=== PATIENT | female | born 1980 | race Caucasian/White ===

== ENCOUNTER 2017-01-07 15:37 | Inpatient (IN) | payer BC ==
[2017-01-07] MEDS ORDERED: Oxytocin in LR* 20 UNITS/1,000 ML BAG IVPB ONE (17:18)
[2017-01-07 17:44] LABS: Hematocrit 33 % (35-47); Hemoglobin 10.3 g/dl (12.0-16.0); Mean Corpuscular HGB Conc 32 g/dl (31-36); Mean Corpuscular Hemoglobin 26 pg (27-31); Mean Corpuscular Volume 81 fL (80-97); Mean Platelet Volume 9 um3 (7.4-10.4); Red Blood Count 4.03 10^6/ul (4.0-5.4); Red Cell Distribution Width 15 % (10.5-15); White Blood Count 9.6 10^3/ul (3.5-10.8)
[2017-01-07] MEDS ORDERED: Oxytocin in LR* 20 UNITS/1,000 ML BAG IVPB SCH (18:00)
[2017-01-07 19:15] LABS: Albumin 2.8 g/dL (3.2-5.2); BUN/Creatinine Ratio 28.6 (8-20); Calcium 9.4 mg/dL (8.6-10.3); EGFR African American 122.5 (>60); EGFR Non-African American 95.2 (>60); Globulin 2.9 g/dL (2-4); Potassium 4.7 mmol/L (3.5-5.0); Total Bilirubin 0.3 mg/dL (0.2-1.0); Total Protein 5.7 g/dL (6.4-8.9); Uric Acid 5.8 mg/dL (2.3-6.6)
[2017-01-08] MEDS ORDERED: Promethazine INJ(RESTRICTED)* 25 MG/ML 1 ML VIAL ONE (00:05)
[2017-01-08] MEDS ORDERED: Nalbuphine* 20 MG/ML 1 ML VIAL ONE (00:05)
[2017-01-08] MEDS ORDERED: Nalbuphine* 20 MG/ML 1 ML VIAL IV PRN ×2 (00:06→05:52)
[2017-01-08] MEDS ORDERED: Promethazine INJ(RESTRICTED)* 25 MG/ML 1 ML VIAL IV ONE (00:07)
[2017-01-08] MEDS ORDERED: Sodium Citrate/Citric Acid* 15 ML UDC ONE (03:38)
[2017-01-08] MEDS ORDERED: Morphine PF AMP (0.5MG/ML)* 5 MG/10 ML AMP ONE (04:31)
[2017-01-08] MEDS ORDERED: ceFOXitin 2 GM IVPREMIX* 2 GM/50 ML BAG ONE (04:39)
[2017-01-08] MEDS ORDERED: OXYTOCIN* 10 UNITS/ML 1 ML VIAL ONE ×2 (05:07→05:36)
[2017-01-08] MEDS ORDERED: Ondansetron INJ* 2 MG/ML VIAL ONE (05:10)
[2017-01-08] MEDS ORDERED: Misoprostol TAB* 200 MCG ONE (05:37)
[2017-01-08] MEDS ORDERED: Ketorolac INJ* 30 MG/ML 1 ML VIAL IV PRN ×2 (05:49→05:52)
[2017-01-08] MEDS ORDERED: Acetaminophen IV 1GM/100ML * 100 ML IVPB ONE (05:49)
[2017-01-08] MEDS ORDERED: oxyCODONE TAB* 5 MG TAB PO PRN ×2 (05:49→05:52)
[2017-01-08] MEDS ORDERED: fentaNYL* 50 MCG/ML 2 ML VIAL (100 MCG VIAL) IV PRN (05:49)
[2017-01-08] MEDS ORDERED: PROCHLORPERAZINE INJ 5 MG/ML 2 ML VIAL IV PRN (05:49)
[2017-01-08] MEDS ORDERED: Ondansetron INJ* 2 MG/ML VIAL IV PRN (05:52)
[2017-01-08] MEDS ORDERED: Naloxone* 0.4 MG/ML 1 ML VIAL IV PRN (05:52)
[2017-01-08] MEDS ORDERED: EPHEDrine (Pressors)* 50 MG/ML VIAL ONE (06:00)
[2017-01-08] MEDS ORDERED: Phenylephrine IV* 40 MCG/ML 10 ML SYRINGE ONE (06:00)
[2017-01-08] MEDS ORDERED: Ketorolac INJ* 30 MG/ML 1 ML VIAL ONE (06:36)
[2017-01-08] MEDS ORDERED: Glycerin ADULT SUPP PR PRN (07:16)
[2017-01-08] MEDS ORDERED: Misoprostol TAB* 200 MCG PR ONE (07:16)
[2017-01-08] MEDS ORDERED: Dibucaine 1% 28.35 GM TUBE PR PRN (07:16)
[2017-01-08] MEDS ORDERED: Witch Hazel PAD* JAR TOPICAL PRN (07:16)
[2017-01-08] MEDS ORDERED: Oxytocin in LR* 20 UNITS/1,000 ML BAG IVPB SCH (08:00)
--- NOTE | 2017-01-08 10:48 | OP ---
DATE OF OPERATION: 01/08/17 - ROOM #117 DATE OF : 82 SURGEON: Florina Oviedo MD PAN SHAKER: Chucho Batista MD ANESTHESIOLOGIST: Zhanna Santillan MD ANESTHESIA: Spinal. PRE-OP DIAGNOSIS: Full-term intrauterine twin gestation, twin B, category II heart tracing, and remote from delivery. POST-OP DIAGNOSIS: Full-term intrauterine twin gestation, twin B, category II heart tracing, and remote from delivery. OPERATIVE PROCEDURE: Primary low-flap transverse section via Pfannenstiel. Uterus closed in 2 layers. FINDINGS: Viable twin girls. Twin A: Vertex, weight 6 pound 11 ounces. Apgars 9 and 9. Twin B: Vertex, weight 7 pound 7 ounces, Apgars 9 and 9. Clear amniotic fluid. The uterus was atonic. There was a 3-cm serosal fibroid on the posterior uterine wall near the fundus. Normal-appearing ovaries bilaterally. Normal- appearing fallopian tubes bilaterally. ESTIMATED BLOOD LOSS: 800 cc intraop and 300 cc of blood and clot expressed immediately postop. URINE OUTPUT: 300 cc of clear urine. COMPLICATIONS: None. COUNTS: Sponge, lap, and needle count were correct x2. CONDITION: The patient was brought to the recovery room awake and in stable condition. DESCRIPTION OF PROCEDURE: The patient was brought to the operating room when she was found to be fully dilated. The patient pushed for approximately 45 minutes while both babies were monitored. Twin B developed tachycardia. The patient was afebrile. No other known cause of the tachycardia was found and recommendation was made for primary section, inability to assess well-being for twin B, remote from delivery. The patient received spinal anesthesia. A Irby catheter was placed under sterile condition. The patient was prepped and draped in the usual sterile fashion in the dorsal supine position with the leftward tilt. Time-out was performed. The spinal was tested with the Allis clamps. A Pfannenstiel skin incision was made approximately 2 cm above the symphysis pubis. This was carried down to the underlying layer of fascia. The fascia was incised in the midline and the fascial incision was extended laterally with the Corral scissors. The fascia was grasped with the Peter clamps. The rectus muscle was dissected using sharp and blunt dissection. The rectus muscle was in the midline. The peritoneum was identified, tented up, and entered bluntly. The peritoneal incision was extended bluntly. The bladder blade was inserted. The vesicouterine peritoneum was identified and a bladder flap was created. The bladder blade was re- inserted. A low-flap transverse incision was made on the uterus to the level of the membranes. The uterine incision was extended bluntly. Twin A was delivered atraumatically from the vertex presentation. The cord was milked. The cord was clamped and cut and the was handed off to the awaiting construction skills teacher, Dr. Baker. Twin B was palpated to be in the vertex presentation. Membranes were ruptured. Clear amniotic fluid was encountered and the infant was delivered atraumatically from the vertex presentation. The cord was milked. The cord was clamped and cut and the infant was handed off to the awaiting construction skills teacher, Dr. Baker. The placenta was delivered. The uterus was exteriorized. The uterus was cleared of all clots and debris and the uterus was found to be very atonic. Uterine incision was repaired using 0 Vicryl in a running locked fashion. A second layer of the same suture was used to imbricate and obtain excellent hemostasis. The patient received a dose of 800 mcg of Cytotec rectally. The uterine tone improved. The ovaries and fallopian tubes were examined with the above findings noted. The abdomen and pelvis were copiously irrigated with warm normal saline. Once again the uterine incision was examined and found to be hemostatic. The uterus was returned to the pelvis. The gutters were cleared of all clots and debris and again the uterine incision was examined and found to be hemostatic. Peritoneum was closed with 3-0 Vicryls. The subfascial layer was examined and found to be hemostatic. The fascia was closed using 0 Vicryl. The subcutaneous tissue was irrigated. Any small bleeders were cauterized with the Bovie. Three interrupted subcutaneous sutures were placed of 3-0 Vicryl. The skin was closed with 4-0 Monocryl. Steri-Strips were applied. A pressure dressing was applied. The patient tolerated the procedure well. Sponge, lap, and needle count were correct x2. Irby catheter was draining clear urine. The fundus was found to be approximately 4 cm above the umbilicus. With uterine massage, blood and clot was evacuated, approximately 300 cc. The fundus was then firm. The patient was brought to the recovery room awake and in stable condition. The patient has sequential compression devices activated throughout the surgery and in the recovery room, those will remain until she is ambulating regularly. In addition, she will receive 5,000 units of subcu heparin q.8 hours for DVT prophylaxis. Risks and benefits were discussed with the patient and the patient agrees with the plan. [id number]/[facility] #: [id number] [facility] CENTERMarianela
[2017-01-08] MEDS: Simethicone CHEW TAB* 80 MG PO SCH ×4 (11:40→22:09)
[2017-01-08] MEDS: Docusate CAP* 100 MG PO SCH ×3 (11:41→20:25)
[2017-01-08] MEDS: Acetaminophen TAB* 325 MG PO SCH ×2 (14:31→22:09)
[2017-01-08] MEDS: Heparin VIAL(*) 5000 UNITS/ML VIAL (FIVE THOUSAND) SUBCUT SCH ×2 (14:31→22:08)
[2017-01-09] MEDS: Heparin VIAL(*) 5000 UNITS/ML VIAL (FIVE THOUSAND) SUBCUT SCH ×3 (06:20→22:08)
[2017-01-09] MEDS: Acetaminophen TAB* 325 MG PO SCH (06:22)
[2017-01-09 08:24] LABS: Hematocrit 22 % (35-47); Hemoglobin 6.8 g/dl (12.0-16.0); Mean Corpuscular HGB Conc 32 g/dl (31-36); Mean Corpuscular Hemoglobin 26 pg (27-31); Mean Corpuscular Volume 81 fL (80-97); Mean Platelet Volume 9 um3 (7.4-10.4); Red Blood Count 2.66 10^6/ul (4.0-5.4); Red Cell Distribution Width 15 % (10.5-15); White Blood Count 12.3 10^3/ul (3.5-10.8)
[2017-01-09 08:25] LABS: Comments Flag Yes
[2017-01-09 08:26] LABS: Add Diff/Slide Review? Slide Review Added
[2017-01-09] MEDS ORDERED: Tetan/Diph/Pertus SYR(Tdap)* 0.5 ML SYR(BOOSTRIX) use SYR IM ONE (09:00)
[2017-01-09] MEDS: Docusate CAP* 100 MG PO SCH ×3 (09:00→21:18)
[2017-01-09] MEDS ORDERED: oxyCODONE/Acetamin 5/325 MG* TAB PO PRN (09:08)
[2017-01-09] MEDS: Ferrous Gluconate TAB* 324 MG TAB PO SCH ×2 (09:10→21:18)
[2017-01-09] MEDS: Simethicone CHEW TAB* 80 MG PO SCH ×4 (09:10→21:18)
[2017-01-09] MEDS: Ibuprofen TAB* 600 MG PO SCH ×3 (10:36→23:41)
--- NOTE | 2017-01-09 16:11 | PTEDU ---
Patient Name: CAMELIA CUMMINS CAMELIA CUMMINS selected video: Never Ever Shake a Baby to view on 01/09/2017 at 4:10:40 PM from [facility] [id number]
[2017-01-10] MEDS: Heparin VIAL(*) 5000 UNITS/ML VIAL (FIVE THOUSAND) SUBCUT SCH ×3 (06:34→22:27)
[2017-01-10] MEDS: Ibuprofen TAB* 600 MG PO SCH ×3 (06:35→18:31)
[2017-01-10] MEDS: Simethicone CHEW TAB* 80 MG PO SCH ×4 (07:50→22:27)
[2017-01-10] MEDS: Ferrous Gluconate TAB* 324 MG TAB PO SCH ×2 (07:50→22:27)
[2017-01-10] MEDS: oxyCODONE/Acetamin 5/325 MG* TAB PO PRN ×2 (07:51→12:38)
[2017-01-10] MEDS: Docusate CAP* 100 MG PO SCH ×3 (09:41→22:10)
[2017-01-11] MEDS: Ibuprofen TAB* 600 MG PO SCH ×2 (00:15→07:40)
[2017-01-11] MEDS: oxyCODONE/Acetamin 5/325 MG* TAB PO PRN (00:41)
[2017-01-11] MEDS: Ferrous Gluconate TAB* 324 MG TAB PO SCH (07:38)
[2017-01-11] MEDS: Simethicone CHEW TAB* 80 MG PO SCH (07:39)
[2017-01-11] MEDS: Heparin VIAL(*) 5000 UNITS/ML VIAL (FIVE THOUSAND) SUBCUT SCH (07:40)
[2017-01-11 07:47] VITALS: BP 147/69
[2017-01-11 07:56] LABS: Hematocrit 20 % (35-47); Mean Corpuscular HGB Conc 32 g/dl (31-36); Mean Corpuscular Hemoglobin 26 pg (27-31); Mean Corpuscular Volume 81 fL (80-97); Mean Platelet Volume 8 um3 (7.4-10.4); Red Cell Distribution Width 15 % (10.5-15); White Blood Count 9.2 10^3/ul (3.5-10.8)
[2017-01-11 07:58] LABS: Comments Flag Yes; Hemoglobin 6.5 g/dl (12.0-16.0)
[2017-01-11] MEDS: Docusate CAP* 100 MG PO SCH (09:40)
== END 2017-01-11 13:15 | disposition home or self-care (01) | DRG 540 ==
LOC: MCHOBOUT 15:37 → MCHOB 16:42
PROVIDERS: ADMIT Obstetrics & Gynecology; ATTEND Obstetrics & Gynecology
PROC: 3E033VJ Introduction of Other Hormone into Peripheral Vein, Percutaneous Approach (ICD-10-PCS; 2017-01-08)
PROC: 10907ZC Drainage of Amniotic Fluid, Therapeutic from Products of Conception, Via Natural or Artificial Opening (ICD-10-PCS; 2017-01-08)
PROC: 4A1H7CZ Monitoring of Products of Conception, Cardiac Rate, Via Natural or Artificial Opening (ICD-10-PCS; 2017-01-08)
PROC: 10D00Z1 Extraction of Products of Conception, Low, Open Approach (ICD-10-PCS; principal; 2017-01-08 03:18)
DX: O76 Abnormality in fetal heart rate and rhythm complicating labor and delivery (principal); Z68.42 Body mass index [BMI] 45.0-49.9, adult; O24.420 Gestational diabetes mellitus in childbirth, diet controlled; O99.214 Obesity complicating childbirth; Z37.2 Twins, both liveborn; O14.04 Mild to moderate pre-eclampsia, complicating childbirth; O99.284 Endocrine, nutritional and metabolic diseases complicating childbirth; E03.9 Hypothyroidism, unspecified; E66.01 Morbid (severe) obesity due to excess calories; O75.89 Other specified complications of labor and delivery; O34.13 Maternal care for benign tumor of corpus uteri, third trimester; D25.2 Subserosal leiomyoma of uterus; Z3A.38 38 weeks gestation of pregnancy
CPT/HCPCS: 36415; 76815; 80053; 84550; 85025; 85610; 85730; 86850; 86900; 86901; A9270-GY; J0694; J1644; J1885; J2300; J2405; J2550; J2590

== ENCOUNTER 2018-07-20 17:24 | Emergency (ER) | payer BC ==
--- NOTE | 2018-07-20 17:36 | UC ---
Abdominal Pain Female HPI - HPI Summary HPI Summary: Has very mild RLQ pain x2wks but woke up this AM w/ moderate/worsened pain. assoc. w/ loose stools. - History of Current Complaint Stated Complaint: ABDOMINAL COMPLAINT Time Seen by Provider: 07/20/18 17:35 Hx Obtained From: Patient ?: No Onset/Duration: Sudden Onset Location: Discrete At: RLQ Radiates: No Aggravating Factor(s): Nothing Alleviating Factor(s): Nothing Associated Signs and Symptoms: Positive: Nausea. Negative: Fever, Cough, Blood in Stool, Urinary Symptoms Allergies/Adverse Reactions: Allergies Allergy/AdvReac Type Severity Reaction Status Date / Time latex Allergy Rash Verified 07/20/18 17:35 Sulfa (Sulfonamide Allergy Hives Verified 07/20/18 17:35 Antibiotics) Home Medications: Home Medications Aspirin 650 mg PO Q12HR PRN 07/20/18 [History Confirmed 07/20/18] PMH/Surg Hx/FS Hx/Imm Hx Endocrine History: Other - obesity - Surgical History Surgical History: None - Social History Alcohol Use: None Substance Use Type: None Smoking Status (MU): Former Smoker Have You Smoked in the Last Year: No - Immunization History Most Recent Influenza Vaccination: unknown Most Recent Pneumonia Vaccination: none Review of Systems All Other Systems Reviewed And Are Negative: Yes Constitutional: Positive: Negative. Negative: Fever, Chills, Fatigue Skin: Positive: Negative Respiratory: Positive: Negative Cardiovascular: Positive: Negative Gastrointestinal: Positive: Abdominal Pain, Nausea. Negative: Vomiting, Diarrhea Genitourinary: Negative: Dysuria, Hematuria Neurological: Negative: Headache Physical Exam Triage Information Reviewed: Yes Appearance: Well-Appearing Vital Signs Reviewed: Yes Respiratory Exam: Normal Cardiovascular Exam: Normal Abdomen Description: Positive: Soft, Other: - RLQ deep tenderness. Negative: CVA Tenderness (R), CVA Tenderness (L), Distended, Guarding, Peritoneal Signs Abd Pain Female Course/Dx - Course Course Of Treatment: RLQ pain that worsened today in a non obese pt. Urine hcg neg today. Exam + for RLQ tenderness. With RLQ pain appendicitis, diveriticulitis and ovarian cause would need to be ruled out. Given that we would potentially need a CT w/ contrast, lab results today, and Possibe US none of which we have here today it was recommended she get dao evaluation at ED. Pt is stable and good vitals. Offered ambulance she declined. - Differential Dx/Diagnosis Differential Diagnosis: Appendicitis, Diverticulitis, Ovarian Cyst Provider Diagnosis: Right lower quadrant abdominal pain Discharge - Sign-Out/Discharge Documenting (check all that apply): Patient Departure All imaging exams completed and their final reports reviewed: No Studies - Discharge Plan Condition: Good Disposition: HOME-RECOMMEND TO ED Patient Education Materials: Acute Abdominal Pain (ED) Referrals: Sonu Hoskins MD [Primary Care Provider] - Additional Instructions: It is my recommendation that you go to the ER to rule out diverticulitis vs. appendicitis or other Right Lower Quadrant evaluation. You will likely need a CT with or without contrast. Your vitals are stable. - Billing Disposition and Condition Condition: GOOD Disposition: Home-Recommend to ED
[2018-07-20 17:39] VITALS: BP 144/93
== END 2018-07-20 18:20 | disposition home health service (06) ==
LOC: UCEAST 17:24
DX: R10.31 Right lower quadrant pain (principal); Z88.2 Allergy status to sulfonamides; Z87.891 Personal history of nicotine dependence
CPT/HCPCS: 84702; 99212; G0463

== ENCOUNTER 2018-07-20 18:37 | Emergency (ER) | payer BC ==
[2018-07-20 18:43] VITALS: BP 158/93
== END 2018-07-20 20:55 | disposition left against medical advice (07) ==
LOC: ED 18:37
DX: R10.9 Unspecified abdominal pain (principal); Z53.21 Procedure and treatment not carried out due to patient leaving prior to being seen by health care provider
CPT/HCPCS: 99282

== ENCOUNTER 2018-07-21 09:58 | Day surgery (SDC) | payer BC ==
[2018-07-21] MEDS ORDERED: NS 0.9% 1000 ML* 1,000 ML IV ONE (10:24)
[2018-07-21 10:41] LABS: ABS Basophils 0 10^3/ul (0-0.2); ABS Eosinophils 0.1 10^3/ul (0-0.6); ABS Lymphocytes 2.2 10^3/ul (1.0-4.8); ABS Monocytes 0.8 10^3/ul (0-0.8); ABS Neutrophils 7.1 10^3/ul (1.5-7.7); ABS Nucleated RBC 0 10^3/ul; Eosinophil % 0.6 %; Hematocrit 41 % (35-47); Hemoglobin 13.9 g/dl (12.0-16.0); Lymphocyte % 21.6 %; Mean Corpuscular HGB Conc 34 g/dl (31-36); Mean Corpuscular Hemoglobin 30 pg (27-31); Mean Corpuscular Volume 86 fL (80-97); Nucleated Red Blood Cells % 0.1; Platelet Count 265 10^3/ul (150-450); Red Blood Count 4.71 10^6/ul (4.00-5.40); Red Cell Distribution Width 13 % (10.5-15); White Blood Count 10.2 10^3/ul (3.5-10.8)
--- NOTE | 2018-07-21 10:47 | ED ---
Abdominal Pain/Female - HPI Summary HPI Summary: This patient is a 38 year old F presenting to [facility] with a chief complaint of RLQ pain for the last two weeks. She visited urgent care last night and they recommended she come here. She felt an increase in pain around 4 hours ago. She states she mostly feels the pain upon movement. She rates the pain 5/10 in severity when she moves, but 0/10 when she is not moving. She denies radiation of the pain to her back, nausea, and vomiting. She states she was nauseous yesterday and earlier this morning but it has since resolved. She states she had chills and diarrhea yesterday as well and that this was her last BM. She reports that her urine is darker than usual but that she needs to drink more water. The patients last menstrual period was 11 days ago and she states it was 4 days shorter than usual. She denies any vaginal discharge. The patient had a test done at urgent care yesterday and it was negative. She reports a Hx of gallbladder problems and denies Hx of ovarian cyst or torsion. - History of Current Complaint Chief Complaint: EDAbdPain Stated Complaint: ABD PAIN Time Seen by Provider: 07/21/18 10:17 Hx Obtained From: Patient Hx Last Menstrual Period: 07/10/2018 Onset/Duration: Lasting Weeks Timing: Constant Severity Initially: Moderate Severity Currently: Moderate Pain Intensity: 5 Pain Scale Used: 0-10 Numeric Location: Discrete At: RLQ Radiates: No Character: Dull Aggravating Factor(s): Movement Associated Signs and Symptoms: Positive: Nausea, Diarrhea. Negative: Back Pain , Vomiting Allergies/Adverse Reactions: Allergies Allergy/AdvReac Type Severity Reaction Status Date / Time latex Allergy Rash Verified 07/20/18 18:43 Sulfa (Sulfonamide Allergy Hives Verified 07/20/18 18:43 Antibiotics) PMH/Surg Hx/FS Hx/Imm Hx Endocrine/Hematology History: Denies: Hx Diabetes Cardiovascular History: Denies: Hx Hypertension, Hx Pacemaker/ICD Respiratory History: Denies: Hx Asthma GI History: Reports: Hx Gall Bladder Disease History: Reports: Hx Kidney Stones Denies: Hx Kidney Infection, Other Problems/Disorders Sensory History: Denies: Hx Hearing Aid Psychiatric History: Denies: Hx Anxiety, Hx Depression, Hx Panic Disorder, Other Psychiatric Issues/Disorders - Surgical History Surgery Procedure, Year, and Place: csection x1 Infectious Disease History: No Infectious Disease History: Denies: Traveled Outside the [place] in Last 30 Days - Family History Known Family History: Positive: Hypertension - Father, Diabetes - Grandfather - Social History Alcohol Use: None Substance Use Type: Reports: None Smoking Status (MU): Former Smoker Have You Smoked in the Last Year: No Review of Systems Positive: Chills - Had earlier this morning, have since resolved. . Negative: Fever Negative: Erythema Negative: Sore Throat Negative: Chest Pain Negative: Shortness Of Breath, Cough Positive: Abdominal Pain - RLQ, Diarrhea - Last BM was yesterday. , Nausea - Had earlier this morning, has since resolved. . Negative: Vomiting Negative: dysuria, hematuria Negative: Myalgia, Edema Negative: Rash Neurological: Other - Neg: Dizziness All Other Systems Reviewed And Are Negative: No Physical Exam - Summary Physical Exam Summary: Constitutional: Well-developed, Well-nourished, Alert. (-) Distressed Skin: Warm, Dry HENT: Normocephalic; Atraumatic Eyes: Conjunctiva normal Neck: Musculoskeletal ROM normal neck. (-) JVD, (-) Stridor, (-) Tracheal deviation Cardio: Rhythm regular, rate normal, Heart sounds normal; Intact distal pulses; The pedal pulses are 2+ and symmetric. Radial pulses are 2+ and symmetric. (-) Murmur Pulmonary/Chest wall: Effort normal. (-) Respiratory distress, (-) Wheezes, (-) Rales Abd: Soft, , (-) Distension, (-) Guarding, (-) Rebound, RLQ tenderness. Musculoskeletal: (-) Edema Lymph: (-) Cervical adenopathy Neuro: Alert, Oriented x3 Psych: Mood and affect Normal Triage Information Reviewed: Yes Vital Signs On Initial Exam: Initial Vitals Temp Pulse Resp BP Pulse Ox 98.2 F 118 20 119/65 98 07/21/18 10:00 07/21/18 10:00 07/21/18 10:00 07/21/18 10:00 07/21/18 10:00 Vital Signs Reviewed: Yes Diagnostics - Vital Signs Vital Signs Temp Pulse Resp BP Pulse Ox 07/21/18 10:00 98.2 F 118 20 119/65 98 - Laboratory Lab Results: Lab Results 07/21/18 Range/Units 10:30 WBC 10.2 (3.5-10.8) 10^3/ul RBC 4.71 (4.00-5.40) 10^6/ul Hgb 13.9 (12.0-16.0) g/dl Hct 41 (35-47) % MCV 86 (80-97) fL MCH 30 (27-31) pg MCHC 34 (31-36) g/dl RDW 13 (10.5-15) % Plt Count 265 (150-450) 10^3/ul MPV 8.0 (7.4-10.4) fL Neut % (Auto) 69.6 % Lymph % (Auto) 21.6 % [place] % (Auto) 7.8 % Eos % (Auto) 0.6 % Baso % (Auto) 0.4 % Absolute Neuts (auto) 7.1 (1.5-7.7) 10^3/ul Absolute Lymphs (auto) 2.2 (1.0-4.8) 10^3/ul Absolute Monos (auto) 0.8 (0-0.8) 10^3/ul Absolute Eos (auto) 0.1 (0-0.6) 10^3/ul Absolute Basos (auto) 0 (0-0.2) 10^3/ul Absolute Nucleated RBC 0 10^3/ul Nucleated RBC % 0.1 Result Diagrams: 07/21/18 10:30 07/21/18 10:30 Lab Statement: Any lab studies that have been ordered have been reviewed, and results considered in the medical decision making process. - CT CT ABD/PEL CT Interpretation Completed By: Radiologist Summary of CT Findings: Findings consistent with acute appendicitis. No evidence of peridverticular abcess is noted. ED Provider has reviewed this report. - Ultrasound No standard instances Ultrasound Interpretation Completed By: Radiologist Summary of Ultrasound Findings: Transvaginal U/S: Negative exam, no evidence for ovarian torsion. ED Provider has reviewed this report. Re-Evaluation - Re-Evaluation First Eval Re-Evaluation Time: 13:47 Change: Unchanged Comment: Plan for admit discussed with patient Abdominal Pain Fem Course/Dx - Course Course Of Treatment: This patient is a 38 year old F presenting to [facility] with a chief complaint of RLQ pain for the last two weeks. RLQ tenderness was noted upon physical exam. Transvaginal U/S was performed and was unremarkable for ovarian torsion. CT ABD/PEL was performed and was remarkable for acute appendicitis. The patient will be admitted to [facility] for [place]. This plan was discussed with the patient and she was agreeable with this plan. - Diagnoses Provider Diagnoses: Acute appendicitis - Provider Notifications Discussed Care Of Patient With: Javad Wagner - Surgery Time Discussed With Above Provider: 13:47 Instructed by Provider To: Admit As Inpatient Discharge - Sign-Out/Discharge Documenting (check all that apply): Patient Departure - Admit - Discharge Plan Condition: Stable Disposition: HOME Prescriptions: oxyCODONE/Acetamin 5/325 MG* [Percocet 5/325 TAB*] 1 tab PO Q4H PRN #7 tab MDD 4 PRN Reason: Pain Referrals: Javad Wagner MD [Medical Doctor] - 07/28/18 Sonu Hoskins MD [Primary Care Provider] - Additional Instructions: SEE PREPRINTED INSTRUCTIONS - Billing Disposition and Condition Condition: STABLE Disposition: Home - Attestation Statements Document Initiated by Scribe: Yes Documenting Scribe: Sonu Pineda Provider For Whom Scribe is Documenting (Include Credential): Sixto Lopez MD Scribe Attestation: ISonu, scribed for Sixto Lopez MD on 07/21/18 at 2049. Scribe Documentation Reviewed: Yes Provider Attestation: The documentation as recorded by the Sonu mercado accurately reflects the service I personally performed and the decisions made by me, Sixto Lopez MD Status of Scribe Document: Viewed
[2018-07-21 10:57] LABS: Urine Appearance Cloudy; Urine Bacteria Absent (Absent); Urine Bilirubin Negative (Negative); Urine Blood Negative (Negative); Urine Color Amber; Urine Glucose Negative (Negative); Urine Ketones 1+ (Negative); Urine Nitrite Negative (Negative); Urine Protein 1+(30 mg/dL) (Negative); Urine Red Blood Cell 2+(6-10/hpf) (Absent); Urine Specific Gravity 1.029 (1.010-1.030); Urine Urobilinogen Negative (Negative); Urine White Blood Cell Absent (Absent)
[2018-07-21 11:05] LABS: HCG Pregnancy < 0.60 mIU/mL
[2018-07-21 11:18] LABS: ALT 29 U/L (7-52); AST 19 U/L (13-39); Albumin/Globulin Ratio 1.4 (1-3); Alkaline Phosphatase 59 U/L (34-104); Anion Gap 9 mmol/L (2-11); BUN/Creatinine Ratio 16.1 (8-20); Blood Urea Nitrogen 10 mg/dL (6-24); C Reactive Protein 79.73 mg/L (<8.01); CO2 Carbon Dioxide 25 mmol/L (22-32); Calcium 9.2 mg/dL (8.6-10.3); Chloride 104 mmol/L (101-111); EGFR Non-African American 108.3 (>60); Globulin 2.9 g/dL (2-4); Glucose 151 mg/dL (70-100); Potassium 3.8 mmol/L (3.5-5.0); Sodium 138 mmol/L (135-145); Total Protein 6.9 g/dL (6.4-8.9)
[2018-07-21] MEDS ORDERED: Iohexol 300* (CONTRAST) 10 ML SDV IV ONE (11:48)
[2018-07-21] MEDS ORDERED: ceFOXitin 2 GM IVPREMIX* 2 GM/50 ML BAG IVPB ONE (12:57)
[2018-07-21] MEDS ORDERED: Morphine VIAL* 4 MG/ML VIAL (1 ml vial) IV ONE (13:56)
[2018-07-21] MEDS ORDERED: Ondansetron INJ* 2 MG/ML VIAL IV ONE (13:56)
[2018-07-21] MEDS ORDERED: Ondansetron INJ* 2 MG/ML VIAL ONE ×2 (13:59→14:42)
[2018-07-21] MEDS ORDERED: Morphine VIAL* 4 MG/ML VIAL (1 ml vial) ONE (13:59)
[2018-07-21] MEDS ORDERED: Lidocaine 2% PF * 5 ML VIAL ONE (14:42)
[2018-07-21] MEDS ORDERED: Propofol* 10 MG/ML 20 ML BTL ONE (14:42)
[2018-07-21] MEDS ORDERED: Ketorolac INJ* 30 MG/ML 1 ML VIAL ONE (14:42)
[2018-07-21] MEDS ORDERED: Dexamethasone IV* 4 MG/ML 1 ML (4 MG) ONE (14:42)
[2018-07-21] MEDS ORDERED: fentaNYL* 50 MCG/ML 2 ML VIAL (100 MCG VIAL) ONE (14:42)
[2018-07-21] MEDS ORDERED: Midazolam* 1 MG/ML 5 ML VIAL (5 MG) ONE (14:43)
[2018-07-21] MEDS ORDERED: Bupivacaine 0.5% W/EPI SDV* 30 ML VIAL ONE (15:34)
[2018-07-21] MEDS ORDERED: Cisatracurium* 2 MG/ML MDV 5 ML ONE (15:39)
[2018-07-21] MEDS ORDERED: ceFOXitin 2 GM IVPREMIX* 2 GM/50 ML BAG ONE (15:50)
[2018-07-21] MEDS ORDERED: Famotidine IV* 10 MG/ML 2 ML (20 mg) ONE (16:35)
[2018-07-21] MEDS ORDERED: Glycopyrrolate IV* 0.2 MG/ML 1 ML VIAL ONE (16:57)
[2018-07-21] MEDS ORDERED: Neostigmine Methylsulfate* 1 MG/ML 10 ML VIAL (1 mg/ml) ONE (16:57)
[2018-07-21] MEDS ORDERED: Ibuprofen TAB* 600 MG PO PRN (17:18)
[2018-07-21] MEDS ORDERED: oxyCODONE/Acetamin 5/325 MG* TAB PO PRN (17:18)
[2018-07-21] MEDS ORDERED: Naloxone* 0.4 MG/ML 1 ML VIAL IV PRN (17:22)
[2018-07-21] MEDS ORDERED: fentaNYL* 50 MCG/ML 2 ML VIAL (100 MCG VIAL) IV PRN (17:22)
[2018-07-21] MEDS ORDERED: Ondansetron INJ* 2 MG/ML VIAL IV PRN (17:22)
--- NOTE | 2018-07-21 17:22 | BRIEFOPN ---
Brief Operative Note - Surgery Procedures: PREOP/POSTOP DX: ACUTE APPENDICITIS PROC: LAP APPENDECTOMY SURG: MECENAS ANES: GET; TOAL EBL: <10ML IVF: LR SPEC: APPENDIX DRAIN/COMPL: NONE COND : STABLE FINDING: EARLY SUPPURATIVE APPENDICITIS
[2018-07-21 18:50] VITALS: BP 138/87
--- NOTE | 2018-07-22 09:12 | OP ---
CC: Sonu Hoskins MD * DATE OF OPERATION: 07/21/18 - EMERGENCY DEPT DATE OF : 82 SURGEON: Javad Wagner MD HYDRAMATIC MECHANIC: None. ANESTHESIOLOGIST: Dr. Kraus. ANESTHESIA: General endotracheal. PRE-OP DIAGNOSIS: Acute appendicitis. POST-OP DIAGNOSIS: Acute appendicitis. OPERATIVE PROCEDURE: Laparoscopic appendectomy. ESTIMATED BLOOD LOSS: Less than 30 mL. IV FLUIDS: Crystalloid. SPECIMENS: Appendix. DRAINS: None. COMPLICATIONS: None. COUNTS: Instrument, needle, and sponge counts were correct. DESCRIPTION OF PROCEDURE: The patient was brought to the operating room and placed on the table supine. Sequential compression devices were placed on both lower extremities and general anesthesia was administered. The patient received appropriate intravenous antibiotics. She was positioned and padded appropriately. She was prepped and draped in the usual sterile fashion. A time- out was performed. Local anesthetic was infiltrated into the skin and soft tissue prior to making each incision. Entry to the abdomen was through a transumbilical vertical incision. After accessing the peritoneal cavity, a 12-mm trocar was placed and carbon dioxide was insufflated to a pressure of 15 mmHg. Under direct visualization, 5-mm trocars were placed in the suprapubic, midline and in the left lower quadrant. Inspection of the right lower quadrant revealed the appendix to be inflamed and enrobed in adjacent visceral fat that was dissected free bluntly. The appendix was elevated and a window created in the appendix mesentry at the base. The appendix was divided from the cecum with the EndoGIA stapler with a ramirez cartridge. Mesentery of the appendix was divided with the EndoGIA stapler with a khoury cartridge. Appendix was retrieved using an endoscopic retrieval bag through the umbilical site. Hemostasis was assured and staple lines were noted to be intact. Ports were removed under direct visualization. Carbon dioxide was released. Umbilicus was closed with 0 Vicryl in a [id number] fashion to approximate fascia. Skin was closed with 4-0 Monocryl in subcuticular fashion. DermaFlex was applied to the wounds. The patient tolerated the procedure well and extubated and transferred to Recovery in stable condition. [id number]/[facility] #: [id number] [facility]
== END 2018-07-21 10:41 | disposition home or self-care (01) ==
LOC: ED 09:58 → OR 10:41
PROVIDERS: ATTEND Surgery
DX: K35.80 Unspecified acute appendicitis (principal); R10.31 Right lower quadrant pain; Z87.891 Personal history of nicotine dependence
CPT/HCPCS: 36415; 74177; 76830; 80053; 81003; 81015; 83605; 83690; 84702; 85025; 86140; 88304; 96365; 96375; 99284; C1776; J0694; J1100; J1885; J2250; J2270; J2405; J2704; J2710; J3010; Q9967